=== PATIENT | male | born 1955 | race Hispanic/Latino ===

== ENCOUNTER 2021-03-24 12:11 | Outpatient (CLI) | payer BC ==
[2021-03-24 20:47] LABS: SARS-CoV-2 PCR by NAA Not Detected (NotDetected)
== END 2021-03-24 12:12 | disposition home or self-care (01) ==
LOC: CSHLAB 12:11
PROVIDERS: ATTEND Internal Medicine Gastroenterology
DX: Z20.822 Contact with and (suspected) exposure to COVID-19 (principal); R13.10 Dysphagia, unspecified; K21.9 Gastro-esophageal reflux disease without esophagitis
CPT/HCPCS: 87635; U0003; U0005

== ENCOUNTER 2021-03-28 10:34 | Day surgery (SDC) | payer BC ==
[2021-03-25 13:30] VITALS: BMI 31.3
[2021-03-28] MEDS ORDERED: Lidocaine 1% MPF 2 ML VIAL ONE (11:17)
[2021-03-28] MEDS ORDERED: Lidocaine Viscous Sol 2% 15 ml UD Cup ONE (11:24)
[2021-03-28] MEDS ORDERED: Midazolam HCl 2 mg/2 ml Vial ONE (11:56)
[2021-03-28] MEDS ORDERED: PROPOFOL 20 ML ONE ×2 (11:56)
== END 2021-03-28 13:35 | disposition home or self-care (01) ==
LOC: CSHSDC 10:34
PROVIDERS: ATTEND Internal Medicine Gastroenterology
PROC: 0D758ZZ Dilation of Esophagus, Via Natural or Artificial Opening Endoscopic (ICD-10-PCS; principal; 2021-03-28)
DX: K21.9 Gastro-esophageal reflux disease without esophagitis (principal); R13.10 Dysphagia, unspecified; K31.7 Polyp of stomach and duodenum; K31.9 Disease of stomach and duodenum, unspecified
CPT/HCPCS: 88305; J2250; J2704

== ENCOUNTER 2022-11-09 10:00 | Outpatient (CLI) | payer OTHER | END 2022-11-09 10:01 | disposition home or self-care (01) | LOC: CSHRAD 10:00 | PROVIDERS: ATTEND Surgery | DX: K21.9 Gastro-esophageal reflux disease without esophagitis (principal) | CPT/HCPCS: 74246 ==

== ENCOUNTER 2024-05-10 17:44 | Observation (INO) | payer MEDICARE ==
[2024-05-10 18:26] LABS: #Basophils 0.02 10x3/uL (0.0-0.2); #Eosinphils 0.18 10x3/uL (0.0-0.5); #Monocytes 0.67 10x3/uL (0.0-1.1); #Neutrophils 3.71 10x3/uL (1.5-8.4); %Basophils 0.3 % (0.0-2.0); %Lymphocytes 22.5 % (18.0-47.0); %Monocytes 11.3 % (0.0-10.0); %Neutrophils 62.4 % (40.0-75.0); Hematocrit 32.9 % (38.8-50.0); Hemoglobin 10.4 g/dL (13.5-17.5); Mean Corpuscular HGB CONC 31.6 g/dL (32.0-36.0); Mean Corpuscular Hemoglobin 23.1 pg (27.0-33.0); Mean Corpuscular Volume 73.1 fL (81.2-95.1); Mean Platelet Volume 9.9 fL (7.4-10.4); Platelet Count 230 10x3/uL (150-450); RBC Distribution Width 17.8 % (11.5-14.5)
[2024-05-10 18:35] LABS: PTT 24.9 sec (22.0-33.0); Prothrombin Time 10.8 sec (9.5-12.1)
[2024-05-10 18:38] LABS: ALT (SGPT) 15 U/L (8-55); AST (SGOT) 23 U/L (5-34); Albumin 3.5 g/dL (3.4-4.8); Alkaline Phosphatase 75 U/L (40-110); Anion Gap 14 mmol/L (10-20); BUN (Urea Nitrogen) 19 mg/dL (8.4-25.7); Bilirubin, Total 0.5 mg/dL (0.2-1.2); Calc. Creatinine Clearance 0 mL/min (70-130); Calcium 8.3 mg/dL (7.8-10.44); Carbon Dioxide 21 mmol/L (23-31); Chloride 105 mmol/L (98-107); Estimated GFR 74; Globulin 2.9 g/dL (2.4-3.5); Glucose 135 mg/dL (80-115); Potassium 4.4 mmol/L (3.5-5.1); Protein, Total 6.4 g/dL (5.8-8.1); Sodium 136 mmol/L (136-145)
[2024-05-10 18:39] LABS: Acetaminophen 14 mcg/mL (10.0-30.0); Alcohol Less than 10.0 mg/dL (Less than 10); Salicylate Less than 8.0 mg/dL (15.0-30.0)
[2024-05-10 18:43] LABS: Troponin I 0.025 ng/mL (< 0.028)
[2024-05-10 18:52] LABS: Anisocytosis SLIGHT = 6-15 cells (100X) (0-5/hpf); Microcytosis SLIGHT = 6-15 cells (100X) (0-5/hpf); Poikilocytosis SLIGHT = 6-15 cells (100X) (0-5/hpf)
[2024-05-10 18:52] LABS: Amphetamine Not Detected (NotDetected); Barbiturates Screen Not Detected (NotDetected); Benzodiazepine Screen Not Detected (NotDetected); Cocaine Metabolite Screen Not Detected (NotDetected); Methadone Not Detected (NotDetected); Methamphetamine Not Detected (NotDetected); Opiate Screen Not Detected (NotDetected); Oxycodone Screen Not Detected (NotDetected); Phencyclidine (PCP) Not Detected (NotDetected); THC/Cannabinoid Screen Detected (NotDetected); Tricyclic Screen Not Detected (NotDetected)
[2024-05-10 18:53] LABS: Hypochromia SLIGHT = 6-15 cells (100X) (0-5/hpf)
[2024-05-10 18:54] LABS: Burr Cells SLIGHT = 2-5 cells (100X) (0-1/hpf); Elliptocytes SLIGHT = 2-5 cells (100X) (0-1/hpf); Ovalocytes SLIGHT = 2-5 cells (100X) (0-1/hpf)
[2024-05-10 18:55] LABS: Platelet Adequacy Comment Appears Adequate
[2024-05-10] MEDS ORDERED: Ondansetron PF 4 MG/2 ML Vial IVP PRN (20:20)
[2024-05-10] MEDS ORDERED: Zolpidem Tartrate 5 MG TAB PO PRN (20:20)
[2024-05-10] MEDS ORDERED: Dextrose 50% Abboject 50 ML SYRINGE SLOW IVP PRN (20:20)
[2024-05-10] MEDS ORDERED: HumaLOG 300 UNITS/3 ML VIAL SC PRN (20:20)
[2024-05-10] MEDS ORDERED: Senokot S 8.6-50 MG TAB PO PRN (20:20)
[2024-05-10] MEDS ORDERED: Guaifenesin DM 100-10/5 ML UDCUP PO PRN (20:20)
[2024-05-10] MEDS ORDERED: Calcium Carbonate 500 MG ChewTAB PO PRN (20:20)
[2024-05-10] MEDS ORDERED: Glucagon 1 MG/ML KIT IM PRN (20:20)
[2024-05-10] MEDS ORDERED: Acetaminophen 325 MG TAB PO PRN (20:20)
[2024-05-10] MEDS ORDERED: Dextrose 5% in Water 1,000 ML IV PRN (20:20)
[2024-05-10] MEDS: metFORMIN 500 MG TAB PO SCH (21:57)
[2024-05-10] MEDS: Ezetimibe 10 MG TAB PO SCH (21:57)
[2024-05-10] MEDS: Cyclobenzaprine 10 MG TAB PO SCH (21:57)
[2024-05-10] MEDS: Lidocaine 4% Patch TD SCH (21:57)
[2024-05-10] MEDS: Rosuvastatin 20 MG TAB PO SCH (21:57)
[2024-05-10] MEDS: Lactated Ringer's 500 ML IV SCH ×2 (21:59→23:09)
[2024-05-11] MEDS: Morphine 2 MG/ML VIAL SLOW IVP SCH (00:16)
[2024-05-11] MEDS ORDERED: Morphine 2 MG/ML VIAL SLOW IVP PRN (01:05)
[2024-05-11 01:10] VITALS: BMI 33.2
[2024-05-11] MEDS: Ketorolac Tromethamine 30 MG (1 mL) VIAL IVP SCH (01:13)
[2024-05-11 04:44] LABS: Anion Gap 12 mmol/L (10-20); BUN (Urea Nitrogen) 20 mg/dL (8.4-25.7); Calc. Creatinine Clearance 98 mL/min (70-130); Calcium 8.5 mg/dL (7.8-10.44); Carbon Dioxide 26 mmol/L (23-31); Chloride 105 mmol/L (98-107); Estimated GFR 83; Glucose 191 mg/dL (80-115); Magnesium 1.7 mg/dL (1.6-2.6); Potassium 5.2 mmol/L (3.5-5.1); Sodium 138 mmol/L (136-145)
[2024-05-11 04:53] LABS: Troponin I 0.024 ng/mL (< 0.028)
[2024-05-11] MEDS: Levothyroxine Sodium 88 MCG TAB PO SCH (06:15)
[2024-05-11] MEDS: Sodium Chloride 0.9% 500 ML IV SCH (06:15)
[2024-05-11 06:32] LABS: Bilirubin Neg (Negative); Blood, Urine Negative (Negative); Clarity Clear (Clear); Glucose, Urine (Dipstick) >=1000 mg/dL (Negative); Ketone, Urine Negative (Negative); Leukocyte Negative (Negative); Nitrite Negative (Negative); Protein, Urine (Dipstick) Negative (Neg-Trace); Urobilinogen Normal mg/dL (Less than 2)
[2024-05-11 06:40] LABS: Bacteria/HPF None Seen HPF (None Seen); RBC/HPF None Seen HPF (0-3); Squamous Epithelial 0-3 HPF (0-3); WBC/HPF None Seen HPF (0-3)
[2024-05-11] MEDS ORDERED: Enoxaparin 40 MG (0.4 mL) SYRINGE SC SCH ×2 (09:00→21:00)
[2024-05-11] MEDS: Pantoprazole DR 40 MG TAB PO SCH (09:06)
[2024-05-11] MEDS: Multivitamin W/ Minerals 1 TAB PO SCH (09:06)
[2024-05-11] MEDS: Aspirin 81 mg Enteric Coated Tablet PO SCH (09:06)
[2024-05-11] MEDS: Clopidogrel Bisulfate 75 MG TAB PO SCH (09:06)
[2024-05-11 10:04] VITALS: TEMP 97.8
[2024-05-11 12:48] VITALS: BP 116/76
[2024-05-11 12:50] LABS: Hemoglobin A1c 7.3 % (4.0-6.0)
== END 2024-05-11 13:58 | disposition home or self-care (01) ==
LOC: CSHERS 17:44 → CSHTELE 20:05
PROVIDERS: ADMIT Student in an Organized Health Care Education/Training Program; ATTEND Family Medicine
DX: E86.0 Dehydration (principal); R55 Syncope and collapse; I95.9 Hypotension, unspecified; N17.9 Acute kidney failure, unspecified; E11.9 Type 2 diabetes mellitus without complications; D50.9 Iron deficiency anemia, unspecified; R79.89 Other specified abnormal findings of blood chemistry; M54.50 Low back pain, unspecified; I10 Essential (primary) hypertension; E78.5 Hyperlipidemia, unspecified; I25.10 Atherosclerotic heart disease of native coronary artery without angina pectoris; E03.9 Hypothyroidism, unspecified; K21.9 Gastro-esophageal reflux disease without esophagitis; Z88.5 Allergy status to narcotic agent; Z79.82 Long term (current) use of aspirin; Z79.84 Long term (current) use of oral hypoglycemic drugs; Z79.890 Hormone replacement therapy; Z79.899 Other long term (current) drug therapy; Z95.1 Presence of aortocoronary bypass graft
CPT/HCPCS: 70450; 71045; 72125; 72131; 80048; 80053; 80306; 80307; 81001; 82962; 83036; 83605; 83735; 83880; 84443; 84484 ×2; 85025; 85610; 85730; 93005; 99285; J1885; J2272; J7030; J7120; 36415; 36416; J1815

== ENCOUNTER 2024-07-14 13:04 | Outpatient (CLI) | payer MEDICARE ==
[~2024-07-14 13:04] MED LIST: Iopamidol 300 61% 100 ML VIAL FS ONE
== END 2024-07-14 13:05 | disposition home or self-care (01) ==
LOC: CSHCT 13:04
PROVIDERS: ATTEND Urology
DX: N28.89 Other specified disorders of kidney and ureter (principal)
CPT/HCPCS: 74178; 82565; Q9967